=== PATIENT | female | born 1980 | race American Indian/Alaskan Native ===

== ENCOUNTER 2018-08-22 09:21 | Emergency (ER) | payer MEDICAID ==
--- NOTE | 2018-08-22 11:05 | Emergency Department Report ---
HPI - General Chief Complaint: Nausea/Vomiting/Diarrhea Time Seen by Provider: 08/22/18 10:46 - HPI HPI: Room 19 The patient is 38-year-old female presenting with a chief complaint is vomiting and abdominal pain. The patient states her symptoms began this morning with epigastric abdominal pain nausea and vomiting. The patient states she's also had dysuria for one week and is currently taking an antibiotic. Denies history of fever. The patient appears very drowsy and slow to respond when questioned. The patient admits to taking ZZquil and sertraline last night Location: [See above] Duration: [See above] Quality: [See above] Severity: [See above] Modifying factors: [see above] Context: [see above] Mode of transportation: [not driving] ED Past Medical Hx - Past Medical History Previous Medical History?: Yes Hx Psychiatric Treatment: Yes (anxiety, depression) Additional medical history: Kidney Stones. UTI - Surgical History Additional Surgical History: Gastric bypass, left knee surgery - Family History Family history: no significant - Social History Smoking Status: Never Smoker Substance Use Type: None (denies illicit drug use) ED Review of Systems ROS: Stated complaint: N/V WEAKNESS Other details as noted in HPI Constitutional: denies: fever Eyes: denies: eye pain ENT: denies: throat pain Respiratory: no symptoms reported Cardiovascular: denies: chest pain Endocrine: no symptoms reported Gastrointestinal: abdominal pain, nausea, vomiting, diarrhea Genitourinary: dysuria Musculoskeletal: denies: back pain Neurological: denies: headache Physical Exam - Physical Exam Vital Signs: Vital Signs 08/22/18 09:48 Temperature 97.9 F Pulse Rate 78 Respiratory 12 Rate Blood Pressure 138/96 O2 Sat by Pulse 99 Oximetry Physical Exam: GENERAL: The patient is well-developed well-nourished female lying on stretcher sleeping on appearing to be in acute distress. [] HEENT: Normocephalic. Atraumatic. Patient has moist mucous membranes. NECK: Supple. Trachea midline CHEST/LUNGS: Clear to auscultation. There is no respiratory distress noted. HEART/CARDIOVASCULAR: Regular. There is no tachycardia. There is no gallop rub or murmur. ABDOMEN: Abdomen is soft, with diffuse tenderness to palpation. Patient has normal bowel sounds. There is no abdominal distention. There is no rebound or guarding SKIN: There is no rash. There is no edema. There is no diaphoresis. NEURO: The patient is awake, alert, and oriented. The patient is cooperative. The patient has normal speech MUSCULOSKELETAL: There is no evidence of acute injury. ED Course Vital Signs 08/22/18 09:48 Temperature 97.9 F Pulse Rate 78 Respiratory 12 Rate Blood Pressure 138/96 O2 Sat by Pulse 99 Oximetry - Reevaluation(s) Reevaluation #1: 08/22/18 16:51 Patient A&O 4 currently. Patient denies complaints and states she is ready to go home. ED Medical Decision Making - Lab Data Result diagrams: 08/22/18 11:45 08/22/18 11:45 Laboratory Tests 08/22/18 08/22/18 08/22/18 09:58 11:23 11:23 WBC RBC Hgb Hct MCV MCH MCHC RDW Plt Count Lymph % (Auto) [place] % (Auto) Eos % (Auto) Baso % (Auto) Lymph # [place] # Eos # Baso # Seg Neutrophils % Seg Neutrophils # Sodium Potassium Chloride Carbon Dioxide Anion Gap BUN Creatinine Estimated GFR BUN/Creatinine Ratio Glucose POC Glucose 96 Calcium Total Bilirubin AST ALT Alkaline Phosphatase Ammonia Total Protein Albumin Albumin/Globulin Ratio HCG, Qual Urine Color Yellow Urine Turbidity Clear Urine pH 6.0 Ur Specific [place] 1.014 Urine Protein <15 mg/dl Urine Glucose (UA) Neg Urine Ketones Neg Urine Blood Neg Urine Nitrite Neg Urine Bilirubin Neg Urine Urobilinogen < 2.0 Ur Leukocyte Esterase Sm Urine WBC (Auto) 2.0 Urine RBC (Auto) 6.0 U Epithel Cells (Auto) 1.0 Urine Mucus Few Urine Opiates Screen Presumptive negative Urine Methadone Screen Presumptive negative Ur Barbiturates Screen Presumptive negative Ur Phencyclidine Scrn Presumptive negative Ur Amphetamines Screen Presumptive negative U Benzodiazepines Scrn Presumptive negative Urine Cocaine Screen Presumptive negative U Marijuana (THC) Screen Presumptive negative Drugs of Abuse Note Disclamer Plasma/Serum Alcohol 08/22/18 08/22/18 08/22/18 11:45 11:45 11:45 WBC 5.5 RBC 4.63 Hgb 8.0 L Hct 27.7 L MCV 60 L MCH 17 L MCHC 29 L RDW 21.2 H Plt Count 316 Lymph % (Auto) 12.1 L [place] % (Auto) 4.7 Eos % (Auto) 0.5 Baso % (Auto) 0.4 Lymph # 0.7 L [place] # 0.3 Eos # 0.0 Baso # 0.0 Seg Neutrophils % 82.3 H Seg Neutrophils # 4.6 Sodium 144 Potassium 4.3 Chloride 109.7 H Carbon Dioxide 25 Anion Gap 14 BUN 12 Creatinine 0.4 L Estimated GFR > 60 BUN/Creatinine Ratio 30 Glucose 84 POC Glucose Calcium 8.8 Total Bilirubin < 0.20 AST 20 ALT 9 Alkaline Phosphatase 107 Ammonia Total Protein 7.6 Albumin 4.2 Albumin/Globulin Ratio 1.2 HCG, Qual Negative Urine Color Urine Turbidity Urine pH Ur Specific [place] Urine Protein Urine Glucose (UA) Urine Ketones Urine Blood Urine Nitrite Urine Bilirubin Urine Urobilinogen Ur Leukocyte Esterase Urine WBC (Auto) Urine RBC (Auto) U Epithel Cells (Auto) Urine Mucus Urine Opiates Screen Urine Methadone Screen Ur Barbiturates Screen Ur Phencyclidine Scrn Ur Amphetamines Screen U Benzodiazepines Scrn Urine Cocaine Screen U Marijuana (THC) Screen Drugs of Abuse Note Plasma/Serum Alcohol 08/22/18 08/22/18 11:45 11:45 WBC RBC Hgb Hct MCV MCH MCHC RDW Plt Count Lymph % (Auto) [place] % (Auto) Eos % (Auto) Baso % (Auto) Lymph # [place] # Eos # Baso # Seg Neutrophils % Seg Neutrophils # Sodium Potassium Chloride Carbon Dioxide Anion Gap BUN Creatinine Estimated GFR BUN/Creatinine Ratio Glucose POC Glucose Calcium Total Bilirubin AST ALT Alkaline Phosphatase Ammonia 33.0 Total Protein Albumin Albumin/Globulin Ratio HCG, Qual Urine Color Urine Turbidity Urine pH Ur Specific [place] Urine Protein Urine Glucose (UA) Urine Ketones Urine Blood Urine Nitrite Urine Bilirubin Urine Urobilinogen Ur Leukocyte Esterase Urine WBC (Auto) Urine RBC (Auto) U Epithel Cells (Auto) Urine Mucus Urine Opiates Screen Urine Methadone Screen Ur Barbiturates Screen Ur Phencyclidine Scrn Ur Amphetamines Screen U Benzodiazepines Scrn Urine Cocaine Screen U Marijuana (THC) Screen Drugs of Abuse Note Plasma/Serum Alcohol < 0.01 - Radiology Data Radiology results: report reviewed (CT head, CT abdomen and pelvis), image reviewed (CT head, CT abdomen and pelvis) [facility] [address] [place] [address] Cat Scan Report Signed Patient: SIMONE BLUE MR#: [id number] : 1980 Acct:[id number] Age/Sex: 38 / F ADM Date: 08/22/18 Loc: ED Attending Dr: Ordering Physician: HENRI PERKINS MD Date of Service: 08/22/18 Procedure(s): CT abdomen pelvis w con Accession Number(s): [id number] cc: HENRI PERKINS MD FINAL REPORT EXAM: CT ABDOMEN PELVIS W CON HISTORY: diffuse abdominal pain nausea vomiting TECHNIQUE: CT of the abdomen and pelvis with IV contrast. Coronal and sagittal reconstructed imaging provided. PRIORS: None currently available. FINDINGS: ABDOMEN: Stomach: Postsurgical changes. Otherwise unremarkable. Liver, gallbladder, spleen, pancreas, and adrenals are unremarkable. Kidneys: Symmetrical cortical enhancement and excretion. Punctate densities within the kidneys may represent stones or contrast. Largest on the left measures approximately 4.8 mm. Largest on the right measures 0.6 mm. No hydronephrosis. No ureteral stones. IVC is unremarkable No aortic aneurysm or dissection. No periaortic or retroperitoneal mass or adenopathy. Moderate stool. No wall thickening or inflammatory changes. Terminal ileum is unremarkable. Appendix is normal. Small bowel loops are unremarkable. No obstruction. No air-fluid levels. No wall thickening. Mesentery is unremarkable. No free air. No free fluid. P DUC: Limited CT images of the uterus are unremarkable. Low-attenuation lesion in the left lower quadrant on series 2:20 a suggests a cysts in the left ovary. Bladder: No wall thickening. No stones. There is no pelvic mass or adenopathy. Inguinal regions are unremarkable. Bones: No suspicious osseous lesions on this limited examination of the skeleton. Metastatic disease better evaluated with bone scan. IMPRESSION: Punctate stones versus contrast in both kidneys. No hydronephrosis. No ureteral stones. Suspect left ovary with ovarian cyst. Otherwise, no acute findings. Transcribed By: TYM Dictated By: KIKO JORGENSEN MD Electronically Authenticated By: KIKO JORGENSEN MD Signed Date/Time: 08/22/18 1640 DD/ 1618 TD/TT: 08/22/18 1618 [facility] [address] [place] [address] Cat Scan Report Signed Patient: SIMONE BLUE MR#: [id number] : 1980 Acct:[id number] Age/Sex: 38 / F ADM Date: 08/22/18 Loc: ED Attending Dr: Ordering Physician: HENRI PERKINS MD Date of Service: 08/22/18 Procedure(s): CT head/brain wo con Accession Number(s): [id number] cc: HENRI PERKINS MD FINAL REPORT EXAM: CT HEAD/BRAIN WO CON HISTORY: drowsy TECHNIQUE: CT of the head was performed without intravenous contrast. PRIORS: None. FINDINGS: The ventricles are normal in shape and position. The ventricles are nondilated. No intracranial hemorrhage, mass, mass effect, midline shift or evidence of acute ischemic infarct. The basilar cisterns are patent. The paranasal sinuses are clear. The extracranial soft tissues demonstrate no abnormality. The calvarium is intact. The orbits are intact. The mastoid air cells are clear. IMPRESSION: No acute intracranial abnormality. Transcribed By: MG Dictated By: JARON VALLES MD Electronically Authenticated By: JARON MAE MD Signed Date/Time: 08/22/18 1642 DD/ 1638 TD/TT: 08/22/18 1638 - Differential Diagnosis UTI, pyelonephritis, appendicitis, Critical care attestation.: If time is entered above; I have spent that time in minutes in the direct care of this critically ill patient, excluding procedure time. ED Disposition Clinical Impression: Acute abdominal pain Disposition: -01 TO HOME OR SELFCARE Is pt being admited?: No Does the pt Need Aspirin: No Condition: Stable Instructions: Acute Abdominal Pain (ED) Additional Instructions: Return to the emergency department immediately should you develop worsening symptoms, fever, inability to tolerate food or liquid or any other concerns. Referrals: JORY GERMAN MD [Primary Care Provider] - 3-5 Days Time of Disposition: 16:51
[2018-08-22 11:55] LABS: Bilirubin,Urine NEG (Negative); Blood,Urine NEG (Negative); Color,Urine Yellow (Yellow); Mucus,Urine FEW /HPF; Protein,Urine <15 mg/dL mg/dL (Negative); Urobilinogen,Urine < 2.0 mg/dL (<2.0)
[2018-08-22 12:00] LABS: Amphetamine Screen,Urine PRESUMPTIVE NEGATIVE; Benzodiazepines Screen,Urine PRESUMPTIVE NEGATIVE; Cannabinoid Screen,Urine PRESUMPTIVE NEGATIVE; Cocaine Screen,Urine PRESUMPTIVE NEGATIVE; Methadone Screen,Urine PRESUMPTIVE NEGATIVE; Opiate Screen,Urine PRESUMPTIVE NEGATIVE
[2018-08-22 12:24] LABS: Basophils % (Auto) 0.4 % (0.0-1.8); Eosinophils % (Auto) 0.5 % (0.0-4.3); Lymphocytes # (Auto) 0.7 K/mm3 (1.2-5.4); Lymphocytes % (Auto) 12.1 % (13.4-35.0); Mean Corpuscular HGB Conc 29 % (30-34); Monocytes # (Auto) 0.3 K/mm3 (0.0-0.8); Monocytes % (Auto) 4.7 % (0.0-7.3); Platelet Count 316 K/mm3 (140-440); Red Blood Count 4.63 M/mm3 (3.65-5.03)
[2018-08-22 12:28] LABS: Hematocrit 27.7 % (30.3-42.9); Mean Corpuscular Volume 60 fl (79-97); Red Cell Distribution Width 21.2 % (13.2-15.2)
[2018-08-22 12:39] LABS: Alanine Aminotransferase 9 units/L (7-56); Albumin 4.2 g/dL (3.9-5); BUN/Creatinine Ratio 30; Blood Urea Nitrogen 12 mg/dL (7-17); Calcium 8.8 mg/dL (8.4-10.2); Hemolysis Index 0
--- NOTE | 2018-08-22 16:40 | Cat Scan Report ---
FINAL REPORT EXAM: CT ABDOMEN PELVIS W CON HISTORY: diffuse abdominal pain nausea vomiting TECHNIQUE: CT of the abdomen and pelvis with IV contrast. Coronal and sagittal reconstructed imaging provided. PRIORS: None currently available. FINDINGS: ABDOMEN: Stomach: Postsurgical changes. Otherwise unremarkable. Liver, gallbladder, spleen, pancreas, and adrenals are unremarkable. Kidneys: Symmetrical cortical enhancement and excretion. Punctate densities within the kidneys may re present stones or contrast. Largest on the left measures approximately 4.8 mm. Largest on the right m easures 0.6 mm. No hydronephrosis. No ureteral stones. IVC is unremarkable No aortic aneurysm or dissection. No periaortic or retroperitoneal mass or adenopathy. Moderate stool. No wall thickening or inflammatory changes. Terminal ileum is unremarkable. Appendix is normal. Small bowel loops are unremarkable. No obstruction. No air-fluid levels. No wall thickening. Mesentery is unremarkable. No free air. No free fluid. PELVIS: Limited CT images of the uterus are unremarkable. Low-attenuation lesion in the left lower quadrant on series 2:20 a suggests a cysts in the left ovary . Bladder: No wall thickening. No stones. There is no pelvic mass or adenopathy. Inguinal regions are unremarkable. Bones: No suspicious osseous lesions on this limited examination of the skeleton. Metastatic disease better evaluated with bone scan. IMPRESSION: Punctate stones versus contrast in both kidneys. No hydronephrosis. No ureteral stones. Suspect left ovary with ovarian cyst. Otherwise, no acute findings.
--- NOTE | 2018-08-22 16:42 | Cat Scan Report ---
FINAL REPORT EXAM: CT HEAD/BRAIN WO CON HISTORY: drowsy TECHNIQUE: CT of the head was performed without intravenous contrast. PRIORS: None. FINDINGS: The ventricles are normal in shape and position. The ventricles are nondilated. No intracranial hemo rrhage, mass, mass effect, midline shift or evidence of acute ischemic infarct. The basilar cisterns are patent. The paranasal sinuses are clear. The extracranial soft tissues demonstrate no abnormality. The calvar ium is intact. The orbits are intact. The mastoid air cells are clear. IMPRESSION: No acute intracranial abnormality.
[2018-08-22 17:44] VITALS: BP 147/98
== END 2018-08-22 17:21 | disposition home or self-care (01) ==
LOC: ED 09:21
DX: R10.13 Epigastric pain (principal); R11.2 Nausea with vomiting, unspecified; R30.0 Dysuria; R51 Headache; Z88.8 Allergy status to other drugs, medicaments and biological substances; Z88.1 Allergy status to other antibiotic agents
CPT/HCPCS: 36415; 70450; 74177; 80053; 80307; 81001; 82140; 82962; 84703; 85025; 99284; G0480; Q9967; 80320